=== PATIENT | male | born 1965 | race Hispanic/Latino ===

== ENCOUNTER 2018-05-17 20:41 | Emergency (ER) | payer BC, OTHER ==
[2018-05-17 20:47] VITALS: BMI 23.0
[2018-05-17] MEDS ORDERED: TDAP Vaccine 0.5 mL Syr IM ONE (20:48)
--- NOTE | 2018-05-17 20:52 | ED PDOC ---
Arrival/HPI - General Historian: Patient - History of Present Illness Narrative History of Present Illness (Text): 05/17/18 20:49 53 y/o male, etoh intoxicated with etoh on breath, last tetanus doesn't remember, biba as he was found publicly intoxicated this evening. Pt. stated that he was drinking, admits drinking alot tonight, walking, accidentally scratch the left hand palmar against the rock which he sustained abrasion, no laceration, no left hand pain, no numbness or tingling, no head/neck/back/chest/abdomen/other extremity injury, no other medical or psychological complaints. <Ryan Sanderson - Last Filed: 05/18/18 01:17> Past Medical History - Provider Review Nursing Documentation Reviewed: Yes <Ryan Sanderson - Last Filed: 05/18/18 01:17> Family/Social History - Physician Review Nursing Documentation Reviewed: Yes Family/Social History: Unknown Family HX <Ryan Sanderson - Last Filed: 05/18/18 01:17> Allergies/Home Meds <Ryan Sanderson - Last Filed: 05/18/18 01:17> <Donald Spicer - Last Filed: 05/18/18 06:22> Allergies/Adverse Reactions: Allergies Unobtainable Allergy (Verified 05/17/18 20:47) Home Medications: Home Meds Medication Instructions Recorded Confirmed Unobtainable 05/17/18 05/17/18 Review of Systems - Review of Systems Systems not reviewed;Unavailable: Intoxicated Constitutional: absent: Fatigue, Fevers Eyes: absent: Vision Changes ENT: absent: Hearing Changes Respiratory: absent: SOB, Cough Cardiovascular: absent: Chest Pain Gastrointestinal: absent: Abdominal Pain, Nausea, Vomiting Musculoskeletal: absent: Arthralgias, Back Pain, Neck Pain, Joint Swelling, Myalgias Skin: Other (+abrasion). absent: Rash, Pruritis Neurological: absent: Headache, Dizziness Psychiatric: absent: Anxiety, Depression, Suicidal Ideation <Ryan Sanderson - Last Filed: 05/18/18 01:17> Physical Exam - Systems Exam Head: Present: Atraumatic, Normocephalic, Other (no facial bony tenderness or swelling. ). No: Tenderness, Contusion, Swelling, Ecchymosis, Abrasion, Laceration Pupils: Present: PERRL Extroacular Muscles: Present: EOMI Conjunctiva: Present: Normal Ears: Present: NORMAL TM, Normal Canal. No: Erythema Mouth: Present: Moist Mucous Membranes Pharnyx: Present: Normal. No: ERYTHEMA, EXUDATE, TONSILS ENLARGED Nose (External): Present: Atraumatic. No: Abrasion, Contusion, Laceration Nose (Internal): Present: Normal Inspection, No Active Bleeding. No: Rhinorrhea, Septal Hematoma, Epistaxis Neck: Present: Normal Range of Motion. No: Meningeal Signs, MIDLINE TENDERNESS, Paraspinal Tenderness, Lymphadenopathy Respiratory/Chest: Present: Clear to Auscultation, Good Air Exchange. No: Respiratory Distress, Accessory Muscle Use Cardiovascular: Present: Regular Rate and Rhythm, Normal S1, S2. No: Murmurs Abdomen: Present: Normal Bowel Sounds. No: Tenderness, Distention, Peritoneal Signs, Rebound, Guarding Back: Present: Normal Inspection. No: CVA Tenderness, Midline Tenderness, Paraspinal Tenderness, Pain with Leg Raise, Decubitus Ulcer Upper Extremity: Present: Normal Inspection, Normal ROM, NORMAL PULSES, Neurovascularly Intact, Capillary Refill < 2s, Norm 2-Pt Discrimination, Other (Lt. UE: visible lt. hand palmar superficial abrasion apporx. 1cm diameter, no bony tenderness or swelling, no deformity, no scaphoid tenderness, FROM without limitation, sensation intact, motor 5/5, +radial pulse, capillary refill< 2 seconds, neurovascular intact. ). No: Cyanosis, Edema, Tenderness, Swelling, Erythema, Temperature Abnormalties, Deformity Lower Extremity: Present: Normal Inspection, NORMAL PULSES, Normal ROM, Neurovascularly Intact, Capillary Refill < 2 s. No: Edema, Tenderness, Swelling, Deformity Neurological: Present: GCS=15, CN II-XII Intact, Speech Normal, Motor Func Grossly Intact, Gait Normal, Memory Normal Skin: Present: Warm, Dry, Normal Color. No: Rashes Psychiatric: Present: Alert, Oriented x 3, Normal Insight, Normal Concentration <Ryan Sanderson - Last Filed: 05/18/18 01:17> Vital Signs Temp Pulse Resp BP Pulse Ox 05/18/18 01:00 75 18 131/78 100 05/17/18 21:04 98.2 F 74 18 124/78 99 <Donald Spicer - Last Filed: 05/18/18 06:22> Medical Decision Making ED Course and Treatment: 05/17/18 20:53 -FS 90 -Tdap -Wound irrigated with saline, clean with betadine, bacitracin and gauze dressing. -Pt. refused labs/radiology testing. He said just wanna sleep. -Observe and reassess 05/18/18 02:00 -Pt. is sleeping comfortably, easily arousable, offers no pain/medical or psychological complaints, will continue to monitor and re-evaluate until sobered. -Case discussed and endorsed to the current ER attending Dr. Spicer for continuous monitor and re-evaluation. <Ryan Sanderson - Last Filed: 05/18/18 01:17> Re-evaluation Time: 06:22 Reassessment Condition: Re-examined, Improved - Lab Interpretations Lab Results: Lab Results 05/17/18 20:52: POC Glucose (mg/dL) 90 - Medication Orders Current Medication Orders: Discontinued Medications Tetanus/Reduced Diphtheria/Acell Pertussis (Boostrix Vaccine Inj) 0.5 ml IM .ONCE ONE Stop: 05/17/18 20:49 Last Admin: 05/17/18 20:58 Dose: 0.5 ml Immunization Registry Document 05/17/18 20:58 AD (Rec: 05/17/18 20:58 AD [facility] [id number]) [facility]-Date provided 05/17/18 <Donald Spicer - Last Filed: 05/18/18 06:22> - 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 <Ryan Sanderson - Last Filed: 05/18/18 01:17> Disposition/Present on Arrival - Present on Arrival Any Indicators Present on Arrival: No History of DVT/PE: No History of Uncontrolled Diabetes: No Urinary Catheter: No History of Decub. Ulcer: No - Disposition Have Diagnosis and Disposition been Completed?: Yes Disposition Time: 20:54 <Ryan Sanderson - Last Filed: 05/18/18 01:17> - Disposition Disposition Time: 07:00 <Donald Spicer - Last Filed: 05/18/18 06:22> - Disposition Diagnosis: Alcohol intoxication, Abrasion Disposition: HOME/ ROUTINE Patient Problems: Current Active Problems Problem Status Onset Abrasion Acute Alcohol intoxication Acute Condition: GOOD
[2018-05-17 21:05] VITALS: RESP 18; TEMP 98.2
[2018-05-18 03:13] VITALS: PULSE 75; O2SAT 100
[2018-05-18 06:33] VITALS: BP 124/75
== END 2018-05-18 06:31 | disposition home or self-care (01) ==
LOC: ED 20:41
DX: F10.129 Alcohol abuse with intoxication, unspecified (principal); S60.512A Abrasion of left hand, initial encounter; W22.8XXA Striking against or struck by other objects, initial encounter; Y92.9 Unspecified place or not applicable